=== PATIENT | male | born 1975 ===

== ENCOUNTER 2021-10-02 11:57 | Outpatient (CLI) | payer OTHER, SELFPAY ==
[2021-10-02 15:40] LABS: Toxigenic C. Diff POSITIVE (NEGATIVE)
[2021-10-06 21:30] LABS: Calprotectin, Stool 14 mcg/g
== END 2021-10-02 11:58 | disposition home or self-care (01) ==
PROVIDERS: PCP Family Medicine; Visit Provider Nurse Practitioner
DX: R19.4 Change in bowel habit (principal); R19.7 Diarrhea, unspecified
CPT/HCPCS: 83993; 87045; 87177; 87209; 87427; 87493